=== PATIENT | female | born 1955 | race Two or more races ===

== ENCOUNTER 2024-02-08 05:55 | Inpatient (IN) | payer MEDICARE, OTHER, MEDICAID ==
[2024-02-04 14:28] LABS: Basophils # (auto) 0.1 10 ^3/uL (0-0.2); Basophils % (auto) 0.6 % (0.0-2.0); Eosinophils # (auto) 0.2 10 ^3/uL (0-0.8); Eosinophils % (auto) 2.5 % (0.0-7.0); Hematocrit 37.3 % (36.0-46.0); Hemoglobin 13.1 g/dL (12.2-16.2); Lymphocytes # (auto) 2.6 10 ^3/uL (0.4-5.4); Lymphocytes % (auto) 31.7 % (10.0-50.0); Mean Corpuscular Hemoglobin 32.6 pg (28.0-32.0); Monocytes # (auto) 0.6 10 ^3/uL (0-1.3); Monocytes % (auto) 7.5 % (0.0-12.0); Neutrophils # (auto) 4.8 10 ^3/uL (1.6-8.6); Neutrophils % (auto) 57.7 % (37.0-80.0); Platelet Count (auto) 194 10^3/uL (140-450); Red Blood Cells 4.01 10^6/uL (4.0-5.20); Red Cell Distribution Width 14.2 % (11.8-14.3); White Blood Cell 8.3 10^3/uL (4.4-10.8)
[2024-02-04 14:49] LABS: INR 1.04 (0.9-1.15); Partial Thromboplastin Time 28.2 SEC (24.5-34.5)
[2024-02-04 15:35] LABS: Alanine Aminotransferase 27 U/L (7-40); Albumin 4.7 g/dL (3.2-4.8); Alkaline Phosphatase 65 U/L (46-116); Anion Gap 6 (5-15); Aspartate Aminotransferase 24 U/L (13-40); BUN/Creatinine Ratio 21.8 (10.0-20.0); Blood Urea Nitrogen 17 mg/dL (9-23); Calcium 10.2 mg/dL (8.7-10.4); Carbon Dioxide 31 mmol/L (20-31); Chloride 106 mmol/L (98-107); Glucose 103 mg/dL (74-106); Potassium 4.3 mmol/L (3.5-5.1); Sodium 143 mmol/L (136-145)
[2024-02-04 15:36] LABS: Bilirubin, Total 0.6 mg/dL (0.2-1.0); Total Protein 7.4 g/dL (5.7-8.2)
[2024-02-04 15:47] LABS: Urine Bacteria FEW /hpf (None Seen); Urine Blood Negative /uL (Negative); Urine Clarity Clear (Clear); Urine Color Light-Yellow (Yellow); Urine Protein, UAD Negative (Negative); Urine Specific Gravity 1.009 (1.001-1.035); Urine Squamous Epithelial Cell FEW /hpf (<5); Urine Urobilinogen Normal (Negative); Urine WBC 4 /hpf (0 - 5); Urine pH 5.5 (5.0-9.0)
[2024-02-08] VITALS (7 sets, daily range): BP systolic 95–108; BP diastolic 60–70; PULSE 67–80; RESP 15–20; TEMP 96.6–98.5; O2SAT 89–97
[~2024-02-08] VITALS: Ht 160 cm; Wt 93.4 kg
[~2024-02-08 05:55] MED LIST: ACET-1080 PO; ASPI1TAB20 PO; ATOR40TA52 PO; CARV12.544 PO; CLOP75TA28 PO; DIPH50CA31 OR; IBUP-1456 PO; ICOS1CAP OR; MULT-1153 PO; NIFE1TAB31 PO; PANT40TA2 PO
[2024-02-08] MEDS: CIPROFLOXACIN 400MG/200ML 200 ML IV ONE (06:32)
[2024-02-08] MEDS: LIDOCAINE W/ EPINEPHRINE 1% 20ML VIAL ONE (06:33)
[2024-02-08] MEDS: TRANEXAMIC ACID 20 ML ONE (06:33)
[2024-02-08] MEDS: ceFAZolin 2 GM/D5W100ml 100 ML IV ONE (06:58)
[2024-02-08] MEDS: PROPOFOL 200 ML IV ONE (07:09)
[2024-02-08] MEDS ORDERED: ePHEDrine SULFATE 50 MG/ML AMP ONE (07:17)
[2024-02-08] MEDS ORDERED: MIDAZOLAM HCL 2MG/2ML 2ml VIAL (1mg/ml) ONE (07:17)
[2024-02-08] MEDS ORDERED: PHENYLEPHRINE HCL 10 MG/ML VL ONE (07:17)
[2024-02-08] MEDS ORDERED: LIDOCAINE 1% INJ PF 5ML AMP ONE (07:17)
[2024-02-08] MEDS ORDERED: ONDANSETRON HCL 4 MG/2 ML VIAL ONE (07:17)
[2024-02-08] MEDS ORDERED: HYDROmorphone HCL 2 MG/ML VL/or syr ONE (07:17)
[2024-02-08] MEDS ORDERED: ROCURONIUM 10MG/ML 10ML VIAL IV ONE (07:17)
[2024-02-08] MEDS ORDERED: fentaNYL CITRATE 5 ML ONE (07:19)
--- NOTE | 2024-02-08 07:20 | DVHHP2 ---
Admitting Diagnosis: Lumbar spinal stenosis History of Present Illness History Source: Patient, Family, RN Notes Exam Limitations: No limitations HPI Patient has a history of working for the [employer] for over 20 years, she has started developing back pain over the course of time. Patient is been involved in heavy lifting and twisting carrying large heavy items and awkward bags. Home Meds Reported Medications Acetaminophen (Tylenol 8 Hour Arthritis) 650 Mg Tab, 650 MG PO PRN, TAB 02/04/24 Multiple Vitamins W/ Minerals (Centrum Minis Women 50+) 1 Tab Tab, 1 TAB PO DAILY, TAB 02/04/24 Ibuprofen (Ibuprofen) 800 Mg Tab, 800 MG PO Q8HP, TAB 02/04/24 Aspirin (Aspir-81) 81 Mg Tab, 81 MG PO DAILY, TAB 02/04/24 Diphenhydramine Hcl (BANOPHEN) 50 Mg Cap, 50 MG OR PRN, CAP 02/04/24 Pantoprazole Sodium Sesquihydr (Protonix) 40 Mg Tab, 40 MG PO DAILY, #30 TAB 02/04/24 Clopidogrel Bisulfate (Plavix) 75 Mg Tab, 75 MG PO DAILY, TAB 02/04/24 Atorvastatin Calcium (ATORVASTATIN CALCIUM) 40 Mg Tab, 40 MG PO DAILY, TAB 02/04/24 Nifedipine (Nifedipine Er) 30 Mg Tab, 30 MG PO QAM, TAB 02/04/24 Epa Ethyl Ellyn (VASCEPA) 1 Gm Cap, 1 GM OR QID, CAP 02/04/24 Carvedilol (Carvedilol) 12.5 Mg Tab, 12.5 MG PO BID, TAB 02/04/24 Chief Complaint of Abdominal/F: Other (No complaints of any abdominal pain) Chest Pain Chief Complaint: Other (No complaints of any chest pain) Timing/Duration of Neck Pain: Other (Patient has had C-spine surgery in the past, she states her symptoms have resolved and she is doing well from. Surgery was 2006) Timing/Duration of Back Pain: > 1 Month, Other (Low back pain with pain extending to the right hip and leg. 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 However she has made an outstanding recovery with 5/5 strength all four extremities) Quality of Back Pain: Aching Back Pain Location: Lumbar spine Back Pain Radiation: Thigh area Timing/Duration of Headache: Other (No complaints) Timing/Duration of EENT: Other (Normal exam) Initial Comment None Head Injury Occurred: Other (No history of injury) Initial Comment None Chief Complaint for Wheezing/A: Other (No complaints) Neuro Symptoms/Deficit Chief C: Difficulty walking, Other (Patient has restricted the use of a walker at this time due to the extreme leg pain that she is having right greater than left) Cognition/Gait Alt Mental Stat: Alert, Oriented x 3 Past Medical History Cardiac: HTN, Other (Cardiac stents placed x7) Pulmonary: No pertinent Hx Central Nervous System: No pertinent Hx GI: No pertinent Hx Hemotology/Oncology: No pertinent Hx Hepatobiliary: No pertinent Hx Psychiatric: No pertinent Hx Musculoskeletal: Chronic low back pain, Other (Cervical spine surgery 2017) Rheumotologic: No pertinent Hx Infectious Disease: No peritnent Hx ENT: No pertinent Hx Renal/: No pertinent Hx Endocrine: No pertinent Hx Dermatology: No pertinent Hx Others Patient has screws in both feet she has had a hysterectomy in 1997, she has had her gallbladder removed Family History: No pertinent Hx Alocohol: None Drugs: None Lives with: With family Domestic Violence: Neg Review of Systems Constitutional: No symptom reported Ears, Nose, & Throat: No symptom reported Eyes: No symptom reported Pulmonary/Respiratory: No symptom reported Cardiovascular: No symptom reported Gastrointestinal: No symptom reported Genitourinary: No symptom reported Musculoskeletal: No symptom reported Skin: No symptom reported Psychiatric: No symptom reported Endocrine: No symptom reported Hemotologic/Lymphatic: No symptom reported H&P Exam General Appeara: Well developed, Well nourished Head Exam: Normal inspection Neck Exam: Normal inspection Nasal Exam: Normal inspection Mouth: Normal Inspection Pulmonary/Respiratory: Normal inspection Cardiovascular/Chest: Normal inspection Abdominal Exam: Other (No complaints) Rectal Exam: Deferred Back Exam: Normal inspection Pelvic Exam: Not done Male Genital Exam: Not done Shoulder Exam: Normal inspection Elbow/Forearm Exam: Normal inspection Wrist Exam: Normal inspection Hand Exam: Normal inspection Tendon/ Neuro: Normal sensation, Normal motor function [employer] Exam: Normal hearing, Normal speech, PERRL Motor/Sensory: Normal sensory function, Normal motor function Neuro/Mental St: Alert, Oriented Appearance: Appropriate appearance, Appropriate insight Eye contact/ Speech: Cooperative, Good eye contact, Normal speech Thoughts/Psych: Normal thought pattern Skin Exam: Normal inspection, Normal color Lymphatic: Normal inspection Labs/Xrays Labs Test 02/04/24 14:15 Range/Units White Blood Count 8.3 4.4-10.8 10^3/uL Red Blood Count 4.01 4.0-5.20 10^6/uL Hemoglobin 13.1 12.2-16.2 g/dL Hematocrit 37.3 36.0-46.0 % Mean Corpuscular Volume 93.0 80.0-100.0 fL Mean Corpuscular Hemoglobin 32.6 H 28.0-32.0 pg Mean Corpuscular Hemoglobin Concent 35.0 32.0-36.0 g/dL Red Cell Distribution Width 14.2 11.8-14.3 % Platelet Count 194 140-450 10^3/uL Mean Platelet Volume 8.4 6.9-10.8 fL Neutrophils (%) (Auto) 57.7 37.0-80.0 % Lymphocytes (%) (Auto) 31.7 10.0-50.0 % Monocytes (%) (Auto) 7.5 0.0-12.0 % Eosinophils (%) (Auto) 2.5 0.0-7.0 % Basophils (%) (Auto) 0.6 0.0-2.0 % Neutrophils # (Auto) 4.8 1.6-8.6 10 ^3/uL Lymphocytes # (Auto) 2.6 0.4-5.4 10 ^3/uL Monocytes # (Auto) 0.6 0-1.3 10 ^3/uL Eosinophils # (Auto) 0.2 0-0.8 10 ^3/uL Basophils # (Auto) 0.1 0-0.2 10 ^3/uL Nucleated Red Blood Cells 0.0 % Prothrombin Time 11.0 9.3-11.8 sec Prothrombin Time INR 1.04 0.9-1.15 Activated Partial Thromboplast Time 28.2 24.5-34.5 SEC Urine Color Light-yellow Yellow Urine Clarity Clear Clear Urine pH 5.5 5.0-9.0 Urine Specific [place] 1.009 1.001-1.035 Urine Protein Negative Negative Urine Ketones Negative Negative Urine Blood Negative Negative /uL Urine Nitrite Negative Negative Urine Bilirubin Negative Negative Urine Urobilinogen Normal Negative mg/dL Urine Leukocyte Esterase Negative Negative /uL Urine RBC 1 0 - 4 /hpf Urine WBC 4 0 - 5 /hpf Urine Squamous Epithelial Cells Few <5 /hpf Urine Bacteria Few H None Seen /hpf Urine Glucose Normal Normal mg/dL Sodium Level 143 136-145 mmol/L Potassium Level 4.3 3.5-5.1 mmol/L Chloride Level 106 98-107 mmol/L Carbon Dioxide Level 31 20-31 mmol/L Anion Gap 6 5-15 Blood Urea Nitrogen 17 9-23 mg/dL Creatinine 0.78 0.550-1.02 mg/dL Glomerular Filtration Rate Calc 82 >90 mL/min BUN/Creatinine Ratio 21.8 H 10.0-20.0 Serum Glucose 103 74-106 mg/dL Calcium Level 10.2 8.7-10.4 mg/dL Total Bilirubin 0.6 0.2-1.0 mg/dL Aspartate Amino Transferase (AST) 24 13-40 U/L Alanine Aminotransferase (ALT) 27 7-40 U/L Alkaline Phosphatase 65 46-116 U/L Total Protein 7.4 5.7-8.2 g/dL Albumin 4.7 3.2-4.8 g/dL Assessment/Plan Problem List: (1) Lumbar stenosis with neurogenic claudication Primary Diagnosis Lumbar stenosis Admitting Diagnosis: Lumbar stenosis Plan Patient arrives today for a elective spinal surgery with Dr. Speedy Simpson L3-5 posterior spinal decompression and fusion with peek cage and instrumentation The patient was informed of the risks and benefits of the procedure. These include but are not limited to complications of anesthesia, postoperative infection, incomplete relief of symptoms, recurrence of symptoms, damage to blood vessels, nerves and tendons, deep venous thrombosis, pulmonary embolism and possible need for repeat surgery in the future. The risks/benefits/alternatives of surgery including but not limited to pain, bleeding, infection, damage to surrounding soft tissue structures, need for reoperation or future surgery, persistent pain/disability/deformity, pseudoarthrotsis, bone graft collapse or extrusion of interbody device, instrumentation failure, need for instrumentation removal, dural tear, temporary or permanent nerve root damage, paralysis, stroke, deep vein thrombosis, pulmonary embolism, and any associated anesthetic risk (dry mouth, sore throat, dental damage, myocardial infarction, respiratory depression, blindness) were described to the patient in detail and the patient wishes to proceed. No guarantee of surgical outcome/improvement was implied. All of the questions were answered thoroughly and consents were obtained. We will obtain all the necessary preop tests in order for the patient to be cleared medically. Call with questions Mulugeta Garcia [facility] Orthopaedic Spine Surgery nurse practitioner For Dr Zion Simpson - for staff use only Patient was examined, chart reviewed, labs evaluated, and diagnostic studies and findings analyzed. Case was discussed with Dr. Speedy Simpson who formulated the plan of care. This medical document was created using an electronic medical record system with [employer] dictation system. Although this document has been carefully reviewed, there might still be some phonetic and typographical errors. These areas are purely typographical due to imperfections of the software programs, and do not reflect any compromise in the patient's medical care. Plan discussed with: Patient, Other (Preop nurse Marj DONALDSON) ONIEL GARCIA NP Feb 08, 2024 07:20
[2024-02-08] MEDS: VASOPRESSIN 20 UNIT/ML ONE (08:52)
[2024-02-08] MEDS ORDERED: SUGAMMADEX 200mg/2ml Vial (100MG/ML) IV ONE (10:21)
[2024-02-08] MEDS ORDERED: MORPHINE SULFATE INJ 2 MG/ml SYRG IV PRN (11:15)
[2024-02-08] MEDS ORDERED: ONDANSETRON HCL 4 MG/2 ML VIAL IV PRN (11:15)
[2024-02-08] MEDS ORDERED: ACETAMINOPHEN 325 MG TAB PO PRN (11:15)
[2024-02-08] MEDS ORDERED: NITROGLYCERIN 0.4 MG SL TAB SL PRN (11:15)
--- NOTE | 2024-02-08 11:28 | DVHOP2 ---
Operative Report - 2 Report Details Date: 02/08/24 Preop Diagnosis: lumbar spinal stenosis /spondylolisthesis causing incpacitating radiculopathy Postop Diagnosis: same as pre op Surgeon: Speedy Simpson MD [employer] Client Solutions Analyst: Valeria Garcia NP Anesthesiologist: Estefanía Hargrove MD Anesthesia: General Consent: The patient was informed of the risks and benefits of the procedure. These include but are not limited to complications of anesthesia, postoperative infection, incomplete relief of symptoms, recurrence of symptoms, damage to blood vessels, nerves and tendons, deep venous thrombosis, pulmonary embolism and possible need for repeat surgery in the future. Name of Procedure Performed see detailed note Procedure Details Procedure Details: Pre-op Diagnosis: Lumbar Degenerative Disk Disease and Lumbar Spinal Stenosis along with L4/5 and L3/4 spondylolisthesis/ degenerative scoliosis causing Incapacitating back pain, radiculopathy and progressive neurologic deficit Post-op Diagnosis: Lumbar Degenerative Disk Disease and Lumbar Spinal Stenosis with L4/5 and L3/4 spondylolisthesis/degenerative scoliosis causing Incapacitating back pain, radiculopathy and progressive neurologic deficit Procedure: Lumbar 5 laminectomy with Lumbar 5 foraminotomies and facetectomies to decompress central canal and Lumbar 5 nerve roots Lumbar 4 laminectomy with Lumbar 4 foraminotomies and facetectomies to decompress central canal and Lumbar 4 nerve roots Lumbar 3 laminectomy with Lumbar 3 foraminotomies and facetectomies to decompr ess central canal and Lumbar 4 nerve roots Lumbar 3 to 5 posterior spinal inter transverse fusion with bone graft Lumbar 3 to 5 posterior spinal instrumentation with pedicle screws Local Bone Autograft For Fusion Allograft Bone Substitute (Bacterin) to augment Fusion Use of Demineralized Bone Matrix to Augment Fusion Microscope For Microdissection Surgeon: Speedy Simpson MD Assist: ELIEZER Overton Anesthesia: General Fluids and EBL: See anesthesia note Patient was seen in the Pre Anesthesia Care Unit (PACU) and the operative site was initialed by me. All questions were answered to the patients satisfaction and chart reviewed. The patient was taken to the operative room where pre- operative antibiotics were given 30 minutes prior to incision. General anesthesia was induced and neuro-monitoring leads placed. Reich catheter was placed. The patient was turned prone onto the [facility] spinal table. While positioning, I made sure that the belly was free to allow proper expansion of the lungs. The hips were extended and all bony prominences padded. The shoulders were abducted 80 degree and the elbows flexed 100 degrees with no tension on the brachial plexus. I check the foot arterial pulses and they were palpable. The patient was prepped and draped and time out was taken at this time per usual protocol. At this time, the C-arm fluoroscope was brought in and was used to janelle the incision borders proximally and distally. Using a Number 10 Blade, an incision was made extending it proximally and distally per C arm janelle from the posterior spinous process of lumbar 4,5 down to the lumbo-dorsal fascia. All bleeding was controlled with electrocautery. Self-retaining retractors were placed. Electrocautery was then used to take down the lumbo- dorsal fascia, to free the muscle off the bone bilaterally. A Adrian retractor was placed over the posterior spinous process proximally and a lateral C-arm fluoroscope image was taken to insure we were at the correct level. Next, using bovie electro cautery, The deep fascia laterally to the facet joints was removed to expose the transverse processes of lumbar 3, 4 and 5 while taking care to avoid injuring the facet capsule at the proximal end of the incision. Next, the microscope was bought in for visualization and using a Luxell rongeur, the posterior spinous process of lumbar 3 and 4 and 5 bone were removed and the bone was saved for use as local autograft. I used alternating Kerison 2 mm and 3 mm rongeurs to perform central laminectomies lumbar 5 and 4 and 3 to decompress the central canal. Next using alternating Kerison 2mm and 3 mm rongeurs, the superior articular facets of lumbar 3, 4 and 5 were removed bilaterally to decompress the lateral recess (facetectomies) and then extended proximally to decompress the foramen bilaterally (foraminotomies). I used a ball tipped nerve probed to insure that the respective nerve roots were able to be mobilized 5mm in each direction were unimpeded in the lateral recess and foramen. Next I carefully inspected the dura to make sure no durotomy was visible and it was not. I covered the exposed dura with gelfoam soaked in thrombin and the microscope was wheeled away from the operative filed. The C-arm fluoroscope was brought in and perfect AP views of the lumbar 4 and 5 pedicles were obtained. I placed bilateral pedicle screws at these levels by: using a Lenke awl to make a military pilot hole, then a ball tip robe to make sure there was no pedicle breach, then a tap to prepare the track and a 6.5 mm diameter 45 mm length pedicle screw was placed bilaterally. This step to place bilateral pedicle screws was repeated up to the lumbar 3, 4 and 5 level. Next, the c-arm fluoroscope took an AP and lateral x-ray to ensure proper placement of the pedicle screws. Next, the neuro-stimulation probe was placed over the tip of each screw and each screw stimulated only after a current greater than 10 mA was delivered to the screw. Next , I took a Midas Nathanael Drill to decorticate the transverse process which were exposed and local bone graft, Bacterin allograft bone substitute and Demineralized bone matrix were placed along the inter transverse process intervals bilaterally (the fusion bed). Next a curved marsha sized to fit the pedicle screw interval was placed and secured to each pedicle screw using set screws, The set screws were tightened using a torque screwdriver (set to 10 N*M torque) to secure the marsha to the pedicle screws bilaterally. Final AP and lateral C arm fluoroscopic films were taken at this time. Next a 10 [place] diameter Hemovac drain was laced deep to the lumbo- dorsal fascia. The lumbo-dorsal fascia was closed with interrupted 0-Vicry sutures. The subcutaneous tissue was closed with interrupted 2-0 Vicryl sutures. The skin was closed with running 2-0 nylon suture. Sterile dressings were place. The pt. was turned supine onto the stretcher, extubated and taken to the recovery room in stable condition. At the end of the case a TLSO brace was placed as well as an external bone stimulator. Condition Stable Disposition Still a Patient SPEEDY SIMPSON MD Feb 08, 2024 11:28
[2024-02-08] MEDS: ONDANSETRON HCL 4 MG/2 ML VIAL IV ONE (11:30)
[2024-02-08] MEDS ORDERED: HYDROmorphone HCL 2 MG/ML VL/or syr IV PRN (11:30)
--- NOTE | 2024-02-08 11:55 | DVH ---
C-ARM FLUOROSCOPY: PROCEDURE: l3-l5 spinal decompression FLUOROSCOPY TIME: 44.2 sec
--- NOTE | 2024-02-08 11:55 | DVH ---
C-ARM FLUOROSCOPY: PROCEDURE: l3-l5 spinal decompression FLUOROSCOPY TIME: 44.2 sec
[2024-02-08] MEDS: ceFAZolin 1GM/50ML 50 ML IV SCH (15:58)
[2024-02-08] MEDS: CYCLOBENZAPRINE HCL 10 MG TAB PO SCH (15:58)
[2024-02-08] MEDS: D5W/SOD CHLO 0.9% 1,000 ML IV SCH (15:58)
[2024-02-08] MEDS: DOCUSATE SOD 100 MG CAP PO SCH (21:26)
[2024-02-08] MEDS: HYDROcodone-ACET 10/325MG TAB PO PRN (21:27)
[2024-02-09] VITALS (9 sets, daily range): BP systolic 98–130; BP diastolic 53–68; PULSE 69–78; RESP 16–20; TEMP 97.3–98.3; O2SAT 95–98
[2024-02-09] MEDS: D5W/SOD CHLO 0.9% 1,000 ML IV SCH (10:00)
--- NOTE | 2024-02-09 10:02 | DVHINCON2 ---
Date Seen: Feb 09, [address] Simpson Family History: Patient reports no known family medical history. Allergies: Coded Allergies: Sulfa Antibiotics (Unverified Allergy, Mild, rash, 02/04/24) Home Meds Reported Medications Acetaminophen (Tylenol 8 Hour Arthritis) 650 Mg Tab, 650 MG PO PRN, TAB 02/04/24 Multiple Vitamins W/ Minerals (Centrum Minis Women 50+) 1 Tab Tab, 1 TAB PO DAILY, TAB 02/04/24 Ibuprofen (Ibuprofen) 800 Mg Tab, 800 MG PO Q8HP, TAB 02/04/24 Aspirin (Aspir-81) 81 Mg Tab, 81 MG PO DAILY, TAB 02/04/24 Diphenhydramine Hcl (BANOPHEN) 50 Mg Cap, 50 MG OR PRN, CAP 02/04/24 Pantoprazole Sodium Sesquihydr (Protonix) 40 Mg Tab, 40 MG PO DAILY, #30 TAB 02/04/24 Clopidogrel Bisulfate (Plavix) 75 Mg Tab, 75 MG PO DAILY, TAB 02/04/24 Atorvastatin Calcium (ATORVASTATIN CALCIUM) 40 Mg Tab, 40 MG PO DAILY, TAB 02/04/24 Nifedipine (Nifedipine Er) 30 Mg Tab, 30 MG PO QAM, TAB 02/04/24 Epa Ethyl Ellyn (VASCEPA) 1 Gm Cap, 1 GM OR QID, CAP 02/04/24 Carvedilol (Carvedilol) 12.5 Mg Tab, 12.5 MG PO BID, TAB 02/04/24 Current Medications Current Medications Medications (Trade) Dose Ordered Sig/Marilyn Route PRN Reason Start Time Stop Time Status Last Admin Dextrose/Sodium Chloride 1,000 ml @ 100 mls/hr Q10H IV 02/08/24 11:15 02/09/24 05:28 Ondansetron HCl (Zofran) 4 mg Q4HP PRN IV NAUSEA / VOMITING 02/08/24 11:15 Acetaminophen (Tylenol Tablet) 650 mg Q6HP PRN PO MILD PAIN (1-3 PAIN SCALE) 02/08/24 11:15 Acetaminophen/ Hydrocodone Bitart ([place] 10/325MG Tab) 1 tab Q6HP PRN PO MODERATE PAIN (4-6 PAIN SCALE) 02/08/24 11:15 02/09/24 08:34 Morphine Sulfate 1 mg Q4HP PRN IV SEVERE PAIN (7-10 PAIN SCALE) 02/08/24 11:15 Cyclobenzaprine HCl (Flexeril Tablet) 10 mg TID PO 02/08/24 14:00 02/09/24 05:28 Docusate Sodium (Colace Capsule) 100 mg BID PO 02/08/24 22:00 02/09/24 08:34 Cefazolin Sodium 50 ml @ 100 mls/hr Q8HR IV 02/08/24 14:00 02/10/24 06:29 02/09/24 05:28 Nitroglycerin (Ntrostat Sublingual) 0.4 mg Q5MINP PRN SL FOR CHEST PAIN 02/08/24 11:15 Morphine Sulfate 2 mg Q30M PRN IV FOR CHEST PAIN 02/08/24 11:15 Hydromorphone HCl (Dilaudid Injection) 0.25 mg Q10M PRN IV MODERATE PAIN (4-6 PAIN SCALE) 02/08/24 11:30 02/08/24 12:01 DC Vital Signs Vital Signs Date Time Temp Pulse Resp B/P (MAP) Pulse Ox O2 Delivery O2 Flow Rate FiO2 02/09/24 08:49 97.3 76 16 112/57 (75) 98 97.3 02/09/24 08:17 Nasal Cannula* 2 28 Labs/Diagnostic Data Labs Test 02/04/24 14:15 Range/Units White Blood Count 8.3 4.4-10.8 10^3/uL Red Blood Count 4.01 4.0-5.20 10^6/uL Hemoglobin 13.1 12.2-16.2 g/dL Hematocrit 37.3 36.0-46.0 % Mean Corpuscular Volume 93.0 80.0-100.0 fL Mean Corpuscular Hemoglobin 32.6 H 28.0-32.0 pg Mean Corpuscular Hemoglobin Concent 35.0 32.0-36.0 g/dL Red Cell Distribution Width 14.2 11.8-14.3 % Platelet Count 194 140-450 10^3/uL Mean Platelet Volume 8.4 6.9-10.8 fL Neutrophils (%) (Auto) 57.7 37.0-80.0 % Lymphocytes (%) (Auto) 31.7 10.0-50.0 % Monocytes (%) (Auto) 7.5 0.0-12.0 % Eosinophils (%) (Auto) 2.5 0.0-7.0 % Basophils (%) (Auto) 0.6 0.0-2.0 % Neutrophils # (Auto) 4.8 1.6-8.6 10 ^3/uL Lymphocytes # (Auto) 2.6 0.4-5.4 10 ^3/uL Monocytes # (Auto) 0.6 0-1.3 10 ^3/uL Eosinophils # (Auto) 0.2 0-0.8 10 ^3/uL Basophils # (Auto) 0.1 0-0.2 10 ^3/uL Nucleated Red Blood Cells 0.0 % Prothrombin Time 11.0 9.3-11.8 sec Prothrombin Time INR 1.04 0.9-1.15 Activated Partial Thromboplast Time 28.2 24.5-34.5 SEC Urine Color Light-yellow Yellow Urine Clarity Clear Clear Urine pH 5.5 5.0-9.0 Urine Specific [place] 1.009 1.001-1.035 Urine Protein Negative Negative Urine Ketones Negative Negative Urine Blood Negative Negative /uL Urine Nitrite Negative Negative Urine Bilirubin Negative Negative Urine Urobilinogen Normal Negative mg/dL Urine Leukocyte Esterase Negative Negative /uL Urine RBC 1 0 - 4 /hpf Urine WBC 4 0 - 5 /hpf Urine Squamous Epithelial Cells Few <5 /hpf Urine Bacteria Few H None Seen /hpf Urine Glucose Normal Normal mg/dL Sodium Level 143 136-145 mmol/L Potassium Level 4.3 3.5-5.1 mmol/L Chloride Level 106 98-107 mmol/L Carbon Dioxide Level 31 20-31 mmol/L Anion Gap 6 5-15 Blood Urea Nitrogen 17 9-23 mg/dL Creatinine 0.78 0.550-1.02 mg/dL Glomerular Filtration Rate Calc 82 >90 mL/min BUN/Creatinine Ratio 21.8 H 10.0-20.0 Serum Glucose 103 74-106 mg/dL Calcium Level 10.2 8.7-10.4 mg/dL Total Bilirubin 0.6 0.2-1.0 mg/dL Aspartate Amino Transferase (AST) 24 13-40 U/L Alanine Aminotransferase (ALT) 27 7-40 U/L Alkaline Phosphatase 65 46-116 U/L Total Protein 7.4 5.7-8.2 g/dL Albumin 4.7 3.2-4.8 g/dL Assessment see dictated note Plan discussed with: Patient Date of Service: Feb 09, 2024 Billing Provider: STANISLAV GRAY MD Common Visit Codes: [id number] INP/OBS CARE (HIGH) STANISLAV GRAY MD Feb 09, 2024 10:02
[2024-02-09] MEDS: PANTOPRAZOLE 40 MG TAB PO ONE (10:15)
--- NOTE | 2024-02-09 10:16 | DVHINCON2 ---
INTERNAL MEDICINE CONSULTATION HISTORY OF PRESENT ILLNESS: The patient is a 68-year-old lady who underwent back surgery for DJD of the spine. The patient at this time denies any significant pain. No chest pain or shortness of breath. No nausea or vomiting. REVIEW OF SYSTEMS: Review of rest of systems otherwise currently negative. PAST MEDICAL HISTORY: Significant for coronary artery disease, status post 7 stents. She also has history of hypertension, hyperlipidemia, and GERD. MEDICATIONS: Include aspirin, Plavix, Coreg, nifedipine, Protonix. ALLERGIES: SULFA. SOCIAL HISTORY: Denies smoking or alcohol. Lives at home with her . FAMILY HISTORY: Negative. PHYSICAL EXAMINATION: GENERAL: The patient is awake and alert. VITAL SIGNS: Temperature of 97.3, pulse 76 per minute, blood pressure 112/57. SHEENT: Unremarkable. There is no JVD and no pedal edema. LUNGS: Equal bilaterally. No added sounds. CARDIOVASCULAR: S1 and S2 is regular without murmurs. ABDOMEN: Soft. There is no organomegaly. NEUROLOGICAL: The patient is nonfocal. MUSCULOSKELETAL: There are JUANJO drains in place at the lumbar spine. ASSESSMENT AND PLAN: * Coronary artery disease status post stents. The patient will be held off the blood thinners since she is recent postop. * Hypertension. Her blood pressure will be monitored. * Hyperlipidemia. She will resume the atorvastatin. * Obesity. * Gastroesophageal reflux disease for which she will continue Protonix. 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 for which she will be placed on pain medications and receive physical therapy. MD YOAV Rene/ANTONI TID: [id number] RECEIPT: [id number]
[2024-02-09] MEDS: MORPHINE SULFATE INJ 2 MG/ml SYRG IV PRN (11:24)
[2024-02-09] MEDS: ATORVASTATIN 20 MG TAB PO SCH (21:06)
[2024-02-10] VITALS (8 sets, daily range): BP systolic 121–141; BP diastolic 60–73; PULSE 68–113; RESP 16–24; TEMP 98–99.8; O2SAT 93–99
[2024-02-10] MEDS: PANTOPRAZOLE 40 MG TAB PO SCH (05:42)
[2024-02-10 06:51] LABS: Basophils # (auto) 0 10 ^3/uL (0-0.2); Basophils % (auto) 0.3 % (0.0-2.0); Eosinophils # (auto) 0.1 10 ^3/uL (0-0.8); Eosinophils % (auto) 0.5 % (0.0-7.0); Hematocrit 27.1 % (36.0-46.0); Hemoglobin 9.3 g/dL (12.2-16.2); Lymphocytes # (auto) 2.2 10 ^3/uL (0.4-5.4); Lymphocytes % (auto) 19.6 % (10.0-50.0); Mean Corpuscular Hemoglobin 32.3 pg (28.0-32.0); Mean Corpuscular Hgb Conc. 34.5 g/dL (32.0-36.0); Mean Corpuscular Volume 93.7 fL (80.0-100.0); Monocytes # (auto) 0.9 10 ^3/uL (0-1.3); Monocytes % (auto) 8.1 % (0.0-12.0); Neutrophils % (auto) 71.5 % (37.0-80.0); Platelet Count (auto) 131 10^3/uL (140-450); Red Blood Cells 2.89 10^6/uL (4.0-5.20); Red Cell Distribution Width 14.6 % (11.8-14.3); White Blood Cell 11.2 10^3/uL (4.4-10.8)
[2024-02-10 07:10] LABS: Alanine Aminotransferase 29 U/L (7-40); Albumin 3.6 g/dL (3.2-4.8); Anion Gap 7 (5-15); BUN/Creatinine Ratio 26.9 (10.0-20.0); Blood Urea Nitrogen 14 mg/dL (9-23); Calcium 8.9 mg/dL (8.7-10.4); Carbon Dioxide 30 mmol/L (20-31); Glucose 104 mg/dL (74-106)
[2024-02-10 07:11] LABS: Bilirubin, Total 0.4 mg/dL (0.2-1.0)
[2024-02-10 07:12] LABS: Alkaline Phosphatase 44 U/L (46-116); Aspartate Aminotransferase 40 U/L (13-40); Chloride 109 mmol/L (98-107); Potassium 3.4 mmol/L (3.5-5.1); Sodium 146 mmol/L (136-145); Total Protein 5.4 g/dL (5.7-8.2)
--- NOTE | 2024-02-10 10:56 | DVHPN2 ---
Progress Note Date Seen: Feb 10, 2024 Medical Necessity Reason Pt with a Central, PICC or Fol: No Subjective Patient reports: No new complaints Review of Systems: HEENT:Normal, CVS:Normal, RESPIRATORY:Normal, GI:Normal, :Normal, MSK:Normal, NEURO:Normal Objective vital signs Vital Sign Date Time Temp Pulse Resp B/P (MAP) Pulse Ox O2 Delivery O2 Flow Rate FiO2 02/10/24 09:00 98.1 78 19 135/69 (91) 97 98.1 02/10/24 08:00 Nasal Cannula* 2 28 Total Intake and Output 02/09/24 02/09/24 02/10/24 15:00 23:00 07:00 Intake Total 1975 ml 1200 ml Output Total 1550 ml 2030 ml Balance 425 ml -830 ml medications Current Medications Medications Dose Ordered Sig/Marilyn Route Start Time Stop Time Status Last Admin Dose Admin Ondansetron HCl 4 mg Q4HP PRN IV 02/08/24 11:15 Acetaminophen 650 mg Q6HP PRN PO 02/08/24 11:15 Acetaminophen/ Hydrocodone Bitart 1 tab Q6HP PRN PO 02/08/24 11:15 02/10/24 08:41 1 TAB Morphine Sulfate 1 mg Q4HP PRN IV 02/08/24 11:15 02/09/24 11:24 1 MG Cyclobenzaprine HCl 10 mg TID PO 02/08/24 14:00 02/10/24 05:41 10 MG Docusate Sodium 100 mg BID PO 02/08/24 22:00 02/10/24 08:40 100 MG Nitroglycerin 0.4 mg Q5MINP PRN SL 02/08/24 11:15 Morphine Sulfate 2 mg Q30M PRN IV 02/08/24 11:15 Dextrose/Sodium Chloride 1,000 ml @ 75 mls/hr [id number] IV 02/09/24 10:00 02/09/24 23:30 75 MLS/HR Atorvastatin Calcium 40 mg HS PO 02/09/24 22:00 02/09/24 21:06 40 MG Pantoprazole Sodium 40 mg DAILY@0600 PO 02/10/24 06:00 02/10/24 05:42 40 MG Examination: GENERAL:Normal, HEENT:Normal, NECK:Normal, LUNGS:Normal, CVS:Normal, ABDOMEN:Normal, MSK:Normal, MSK:Abnormal (DRAINS+), SKIN:Normal, NEURO:Normal, :Normal laboratory and microbiology Laboratory Tests 02/10/24 06:16 Test 02/10/24 06:16 Range/Units Serum Glucose 104 74-106 mg/dL Problem List/Assessment/Plan Problem List/Assessment/Plan * Coronary artery disease status post stents. The patient will be held off the blood thinners since she is recent postop. * Hypertension. Her blood pressure will be monitored. * Hyperlipidemia. She will resume the atorvastatin. * Obesity. * Gastroesophageal reflux disease for which she will continue Protonix. 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 for which she will be placed on pain medications and receive physical therapy advance care planning- full code- time spent 19 mins Plan discussed with: Patient My Orders My Orders Orders - STANISLAV GRAY MD Procedure Category Date Status Time 02/23 Ns PHA 02/10/24 Verified 11:00 Potassium Er Tablet PHA 02/10/24 Verified (Klor-Con Tablet) 11:00 Discontinue Tele AMAYA 02/10/24 Verified 10:52 Transfer Orders XFER 02/10/24 Verified 10:52 Basic Metabolic Panel LAB 02/11/24 Verified 06:00 Complete Blood Count LAB 02/11/24 Verified 06:00 Date of Service: Feb 10, 2024 Billing Provider: STANISLAV GRAY MD Common Visit Codes: [id number] INP/OBS CARE(HIGH) Secondary Visit Codes: [id number] CARE PLAN 30 MINUTES STANISLAV GRAY MD Feb 10, 2024 10:56
[2024-02-10] MEDS: POTASSIUM CHL 20 Meq TABLET PO ONE (12:29)
[2024-02-10] MEDS: SOD CHL 0.45% 1,000 ML IV SCH (12:29)
--- NOTE | 2024-02-10 13:11 | DVH ---
CHEST RADIOGRAPH Indication: cad Technique: Single frontal view of the chest was obtained Comparison: None FINDINGS: Lines and Tubes: None Lungs: No focal consolidation. Pleura: No effusion. No pneumothorax. Cardiomediastinal contours: Unremarkable Bones: No acute osseous abnormality. IMPRESSION: No acute cardiopulmonary disease.
[2024-02-11] VITALS (7 sets, daily range): BP systolic 106–142; BP diastolic 50–76; PULSE 80–118; RESP 16–20; TEMP 97.5–100.1; O2SAT 93–97
[2024-02-11 06:57] LABS: Basophils # (auto) 0 10 ^3/uL (0-0.2); Basophils % (auto) 0.2 % (0.0-2.0); Eosinophils # (auto) 0.2 10 ^3/uL (0-0.8); Eosinophils % (auto) 1.7 % (0.0-7.0); Hematocrit 27.5 % (36.0-46.0); Hemoglobin 9.6 g/dL (12.2-16.2); Lymphocytes # (auto) 2.4 10 ^3/uL (0.4-5.4); Lymphocytes % (auto) 19.7 % (10.0-50.0); Mean Corpuscular Hemoglobin 32.7 pg (28.0-32.0); Mean Corpuscular Hgb Conc. 35.1 g/dL (32.0-36.0); Mean Corpuscular Volume 93.4 fL (80.0-100.0); Monocytes # (auto) 1.1 10 ^3/uL (0-1.3); Monocytes % (auto) 8.8 % (0.0-12.0); Neutrophils # (auto) 8.6 10 ^3/uL (1.6-8.6); Neutrophils % (auto) 69.6 % (37.0-80.0); Platelet Count (auto) 142 10^3/uL (140-450); Red Blood Cells 2.94 10^6/uL (4.0-5.20); Red Cell Distribution Width 14.6 % (11.8-14.3); White Blood Cell 12.4 10^3/uL (4.4-10.8)
[2024-02-11 06:58] LABS: Anion Gap 5 (5-15); Carbon Dioxide 31 mmol/L (20-31); Chloride 105 mmol/L (98-107); Sodium 141 mmol/L (136-145)
[2024-02-11 06:59] LABS: Calcium 9.2 mg/dL (8.7-10.4)
[2024-02-11 07:04] LABS: BUN/Creatinine Ratio 23.9 (10.0-20.0); Blood Urea Nitrogen 11 mg/dL (9-23); Glucose 104 mg/dL (74-106)
[2024-02-11 07:12] LABS: Potassium 3.4 mmol/L (3.5-5.1)
[2024-02-12 01:00] VITALS: BP 143/68; PULSE 110; RESP 20; TEMP 99.4; O2SAT 95
[2024-02-12 05:00] VITALS: BP 134/59; PULSE 84; RESP 20; TEMP 98.9; O2SAT 96
[2024-02-12 08:51] VITALS: BP 104/57; PULSE 90; RESP 16; TEMP 97.4; O2SAT 98
--- NOTE | 2024-02-12 11:05 | DVHPN2 ---
Subjective was not able to urinate after her mclaughlin was dc and needed mclaughlin reinserted for urine retention denies any cough or dysuria/no diarrhea/no rash/no urti symptoms.//low grade temp 99-100 Changes from previous H/P or p: No Changes Objective Vitals Vital Signs Date Time Temp Pulse Resp B/P (MAP) Pulse Ox O2 Delivery O2 Flow Rate FiO2 02/12/24 08:51 97.4 90 16 104/57 (73) 98 97.4 02/11/24 20:00 Room Air* 0 21 Intake/Output Intake and Output 02/12/24 07:00 Intake Total 2160 ml Output Total 2575 ml Balance -415 ml Intake Oral 2160 ml Output Urine Total 2575 ml General Appearance: Alert, Oriented X3, Cooperative, No acute distress Cardiovascular: Regular rate, Normal S1, Normal S2, No murmurs Abdomen: Normal bowel sounds, Soft, No tenderness, No hepatospenomegaly Neuro: Normal gait, Normal speech, Strength at 5/5 X4 ext, Normal tone, S ensation intact Psych/Mental Status: Mental status NL Medications Current Medications Medications Dose Ordered Sig/Marilyn Route Start Time Stop Time Status Last Admin Dose Admin Ondansetron HCl 4 mg Q4HP PRN IV 02/08/24 11:15 Acetaminophen 650 mg Q6HP PRN PO 02/08/24 11:15 Acetaminophen/ Hydrocodone Bitart 1 tab Q6HP PRN PO 02/08/24 11:15 02/12/24 05:14 1 TAB Morphine Sulfate 1 mg Q4HP PRN IV 02/08/24 11:15 02/11/24 21:14 1 MG Cyclobenzaprine HCl 10 mg TID PO 02/08/24 14:00 02/12/24 05:20 10 MG Docusate Sodium 100 mg BID PO 02/08/24 22:00 02/11/24 21:13 100 MG Nitroglycerin 0.4 mg Q5MINP PRN SL 02/08/24 11:15 Morphine Sulfate 2 mg Q30M PRN IV 02/08/24 11:15 Atorvastatin Calcium 40 mg HS PO 02/09/24 22:00 02/11/24 21:13 40 MG Pantoprazole Sodium 40 mg DAILY@0600 PO 02/10/24 06:00 02/12/24 05:21 40 MG Sodium Chloride 1,000 ml @ 75 mls/hr [id number] IV 02/10/24 11:00 02/11/24 15:04 75 MLS/HR Ceftriaxone Sodium 50 ml @ 100 mls/hr DAILY@09 IV 02/13/24 09:00 UNV Docusate Sodium 100 mg BIDPRN PRN PO 02/12/24 10:30 UNV Lactulose 30 ml BID PO 02/12/24 22:00 UNV Laboratory Results Laboratory Tests 02/11/24 06:09 Urinalysis Test 02/04/24 14:15 Urine Color Light-yellow (Yellow) Urine Clarity Clear (Clear) Urine pH 5.5 (5.0-9.0) Urine Specific [place] 1.009 (1.001-1.035) Urine Protein Negative (Negative) Urine Ketones Negative (Negative) Urine Blood Negative /uL (Negative) Urine Nitrite Negative (Negative) Urine Bilirubin Negative (Negative) Urine Urobilinogen Normal mg/dL (Negative) Urine Leukocyte Esterase Negative /uL (Negative) Urine RBC 1 /hpf (0 - 4) Urine WBC 4 /hpf (0 - 5) Urine Squamous Epithelial Cells Few /hpf (<5) Urine Bacteria Few /hpf (None Seen) H Urine Glucose Normal mg/dL (Normal) Labs and/or images reviewed: Labs reviewed by me, Image(s) reviewed by me Assessment/Plan Assessment/Plan s/p lumbar spine surgery post op urine retention- consult neuro fiirst to reevaluate before adding meds or dc mclaughlin and trial of spontaneous void ambulated with pt asking [facility] rehab- per social contact worker notes states home with pt constipation treat h/o htn normotensive now/monitor closely Plan discussed with: Patient, Daughter My Orders Orders - TUAN FERNANDEZ MD Procedure Category Date Status Time Urine Bacterial MICH 02/12/24 Logged Culture 10:30 Ceftriaxone 1gm/50ml PHA 02/12/24 Logged D5w (Rocephin) 10:30 Ceftriaxone 1gm/50ml PHA 02/13/24 Logged D5w (Rocephin) 09:00 Docusate Sodium PHA 02/12/24 Logged Capsule (Colace 10:30 Lactulose Oral PHA 02/12/24 Logged 22:00 * Orthopedic Consult CONS 02/12/24 Transmitted 10:55 Date of Service: Feb 12, 2024 Billing Provider: TUAN FERNANDEZ MD Common Visit Codes: [id number] INP/OBS CARE(HIGH) TUAN FERNANDEZ MD Feb 12, 2024 11:05
[2024-02-12 11:57] LABS: Basophils # (auto) 0 10 ^3/uL (0-0.2); Basophils % (auto) 0.2 % (0.0-2.0); Eosinophils # (auto) 0.3 10 ^3/uL (0-0.8); Eosinophils % (auto) 3.3 % (0.0-7.0); Hematocrit 28.2 % (36.0-46.0); Hemoglobin 9.8 g/dL (12.2-16.2); Lymphocytes # (auto) 2.2 10 ^3/uL (0.4-5.4); Lymphocytes % (auto) 23.8 % (10.0-50.0); Mean Corpuscular Hemoglobin 32.7 pg (28.0-32.0); Mean Corpuscular Hgb Conc. 34.8 g/dL (32.0-36.0); Mean Corpuscular Volume 93.9 fL (80.0-100.0); Monocytes # (auto) 0.9 10 ^3/uL (0-1.3); Monocytes % (auto) 9.8 % (0.0-12.0); Neutrophils # (auto) 5.8 10 ^3/uL (1.6-8.6); Neutrophils % (auto) 62.9 % (37.0-80.0); Platelet Count (auto) 152 10^3/uL (140-450); Red Blood Cells 3.01 10^6/uL (4.0-5.20); Red Cell Distribution Width 14.5 % (11.8-14.3); White Blood Cell 9.3 10^3/uL (4.4-10.8)
[2024-02-12] MEDS: LACTULOSE 20Gm/30ML SOLN PO ONE (12:49)
[2024-02-12] MEDS: cefTRIAXone 1GM/50ML D5W 50 ML IV ONE (12:50)
[2024-02-12 13:00] VITALS: BP 144/80; PULSE 70; RESP 16; TEMP 97.7; O2SAT 98
[2024-02-12 14:17] LABS: Urine Bacteria None Seen /hpf (None Seen); Urine Squamous Epithelial Cell None Seen /hpf (<5); Urine WBC None Seen /hpf (0 - 5)
[2024-02-12] MEDS: SENNA 8.6 MG TAB PO ONE (16:43)
[2024-02-12 16:59] VITALS: BP 126/69; PULSE 100; RESP 16; TEMP 97.8; O2SAT 98
[2024-02-12] MEDS: DOCUSATE SOD 100 MG CAP PO PRN (21:15)
[2024-02-12] MEDS: LACTULOSE 20Gm/30ML SOLN PO SCH (21:16)
[2024-02-13] VITALS (8 sets, daily range): BP systolic 97–123; BP diastolic 57–72; PULSE 73–104; RESP 16–19; TEMP 97.6–99; O2SAT 92–97
[2024-02-13] MEDS: cefTRIAXone 1GM/50ML D5W 50 ML IV SCH (08:16)
--- NOTE | 2024-02-13 18:03 | DVHPN2 ---
Subjective denies any complaints no bm yet asking if can try to dc mclaughlin again in am awaiting on neurosurgeon Changes from previous H/P or p: No Changes Objective Vitals Vital Signs Date Time Temp Pulse Resp B/P (MAP) Pulse Ox O2 Delivery O2 Flow Rate FiO2 02/13/24 16:41 98.0 104 16 102/71 (81) 92 98.0 02/13/24 08:16 Nasal Cannula* 2 28 Intake/Output Intake and Output 02/13/24 07:00 Intake Total 1930 ml Output Total 1650 ml Balance 280 ml Intake Oral 930 ml IV Total 1000 ml Output Urine Total 1650 ml General Appearance: Alert, Oriented X3, Cooperative, No acute distress Cardiovascular: Regular rate, Normal S1, Normal S2, No murmurs Abdomen: Normal bowel sounds, Soft, No tenderness, No hepatospenomegaly Neuro: Normal gait, Normal speech, Strength at 5/5 X4 ext, Normal tone, S ensation intact Psych/Mental Status: Mental status NL Medications Current Medications Medications Dose Ordered Sig/Marilyn Route Start Time Stop Time Status Last Admin Dose Admin Acetaminophen 650 mg Q6HP PRN PO 02/08/24 11:15 Acetaminophen/ Hydrocodone Bitart 1 tab Q6HP PRN PO 02/08/24 11:15 02/13/24 13:36 1 TAB Cyclobenzaprine HCl 10 mg TID PO 02/08/24 14:00 02/13/24 13:36 10 MG Docusate Sodium 100 mg BID PO 02/08/24 22:00 02/13/24 10:17 100 MG Atorvastatin Calcium 40 mg HS PO 02/09/24 22:00 02/12/24 21:12 40 MG Pantoprazole Sodium 40 mg DAILY@0600 PO 02/10/24 06:00 02/13/24 05:12 40 MG Ceftriaxone Sodium 50 ml @ 100 mls/hr DAILY@09 IV 02/13/24 09:00 02/13/24 08:16 100 MLS/HR Docusate Sodium 100 mg BIDPRN PRN PO 02/12/24 10:30 02/12/24 21:15 100 MG Lactulose 30 ml BID PO 02/12/24 22:00 02/13/24 10:17 30 ML Laboratory Results Laboratory Tests 02/11/24 06:09 02/12/24 11:40 Urinalysis Test 02/04/24 14:15 02/12/24 13:30 Urine Color Light-yellow (Yellow) Urine Clarity Clear (Clear) Urine pH 5.5 (5.0-9.0) Urine Specific [place] 1.009 (1.001-1.035) Urine Protein Negative (Negative) Urine Ketones Negative (Negative) Urine Blood Negative /uL (Negative) Urine Nitrite Negative (Negative) Urine Bilirubin Negative (Negative) Urine Urobilinogen Normal mg/dL (Negative) Urine Leukocyte Esterase Negative /uL (Negative) Urine Glucose Normal mg/dL (Normal) Urine RBC 1 /hpf (0 - 4) Urine WBC None seen /hpf (0 - 5) Urine Squamous Epithelial Cells None seen /hpf (<5) Urine Bacteria None seen /hpf (None Seen) Microbiology Microbiology Date/Time Source Procedure Growth Status 02/12/24 13:30 Urine - [place] Urine Culture - Preliminary Resulted Labs and/or images reviewed: Image(s) reviewed by me Assessment/Plan Assessment/Plan s/p lumbar spine surgery post op urine retention- consult neuro fiirst to reevaluate before adding meds or dc mclaughlin and trial of spontaneous void ambulated with pt asking [facility] rehab- per social media marketing analyst notes states home with pt constipation treat h/o htn normotensive now/monitor closely Plan discussed with: Patient, Daughter Date of Service: Feb 13, 2024 Billing Provider: TUAN FERNANDEZ MD Common Visit Codes: [id number] INP/OBS CARE(MOD) TUAN FERNANDEZ MD Feb 13, 2024 18:03
[2024-02-13] MEDS ORDERED: BISACODYL 10 MG RECT SUPP PR ONE (18:15)
[2024-02-13] MEDS: CYCLOBENZAPRINE HCL 10 MG TAB PO SCH (22:14)
[2024-02-14] VITALS (7 sets, daily range): BP systolic 106–141; BP diastolic 45–71; PULSE 80–117; RESP 17–18; TEMP 98–98.9; O2SAT 91–96
--- NOTE | 2024-02-14 11:18 | DVHDS2 ---
Discharge Summary Date of Admission Feb 08, 2024 at 11:10 Date of Discharge: Feb 14, 2024 Labs/Diagnostic Data: Laboratory Results Test 02/12/24 13:30 02/12/24 11:40 02/11/24 06:09 02/10/24 06:16 Urine RBC 1 /hpf (0 - 4) Urine WBC None seen /hpf (0 - 5) Urine Squamous Epithelial Cells None seen /hpf (<5) Urine Bacteria None seen /hpf (None Seen) White Blood Count 9.3 10^3/uL (4.4-10.8) Red Blood Count 3.01 10^6/uL (4.0-5.20) Hemoglobin 9.8 g/dL (12.2-16.2) Hematocrit 28.2 % (36.0-46.0) Mean Corpuscular Volume 93.9 fL (80.0-100.0) Mean Corpuscular Hemoglobin 32.7 pg (28.0-32.0) Mean Corpuscular Hemoglobin Concent 34.8 g/dL (32.0-36.0) Red Cell Distribution Width 14.5 % (11.8-14.3) Platelet Count 152 10^3/uL (140-450) Mean Platelet Volume 8.2 fL (6.9-10.8) Neutrophils (%) (Auto) 62.9 % (37.0-80.0) Lymphocytes (%) (Auto) 23.8 % (10.0-50.0) Monocytes (%) (Auto) 9.8 % (0.0-12.0) Eosinophils (%) (Auto) 3.3 % (0.0-7.0) Basophils (%) (Auto) 0.2 % (0.0-2.0) Neutrophils # (Auto) 5.8 10 ^3/uL (1.6-8.6) Lymphocytes # (Auto) 2.2 10 ^3/uL (0.4-5.4) Monocytes # (Auto) 0.9 10 ^3/uL (0-1.3) Eosinophils # (Auto) 0.3 10 ^3/uL (0-0.8) Basophils # (Auto) 0 10 ^3/uL (0-0.2) Nucleated Red Blood Cells 0.0 % Potassium Level 3.6 mmol/L (3.5-5.1) Sodium Level 141 mmol/L (136-145) Chloride Level 105 mmol/L (98-107) Carbon Dioxide Level 31 mmol/L (20-31) Anion Gap 5 (5-15) Blood Urea Nitrogen 11 mg/dL (9-23) Creatinine 0.46 mg/dL (0.550-1.02) Glomerular Filtration Rate Calc 103 mL/min (>90) BUN/Creatinine Ratio 23.9 (10.0-20.0) Serum Glucose 104 mg/dL (74-106) Calcium Level 9.2 mg/dL (8.7-10.4) Total Bilirubin 0.4 mg/dL (0.2-1.0) Aspartate Amino Transferase (AST) 40 U/L (13-40) Alanine Aminotransferase (ALT) 29 U/L (7-40) Alkaline Phosphatase 44 U/L (46-116) Total Protein 5.4 g/dL (5.7-8.2) Albumin 3.6 g/dL (3.2-4.8) Test 02/04/24 14:15 Prothrombin Time 11.0 sec (9.3-11.8) Prothrombin Time INR 1.04 (0.9-1.15) Activated Partial Thromboplast Time 28.2 SEC (24.5-34.5) Urine Color Light-yellow (Yellow) Urine Clarity Clear (Clear) Urine pH 5.5 (5.0-9.0) Urine Specific [place] 1.009 (1.001-1.035) Urine Protein Negative (Negative) Urine Ketones Negative (Negative) Urine Blood Negative /uL (Negative) Urine Nitrite Negative (Negative) Urine Bilirubin Negative (Negative) Urine Urobilinogen Normal mg/dL (Negative) Urine Leukocyte Esterase Negative /uL (Negative) Urine Glucose Normal mg/dL (Normal) Other Laboratory Tests 02/12/24 11:40 02/11/24 06:09 Brief Hx & Hospital Course: see dictated note Condition at Discharge: Fair Final Diagnosis/Problems List back surgery Discharge Disposition: [facility] Discharge Instruct/Medications Diet: Regular Activity: No Restrictions, As Tolerated Follow Up/Referral: fu with dr Simpson Medications: per apr Discharge Statement: "Patient was advised to return to the ER or call 911 if any headaches, dizziness, shortness of breath, chest pain, abdominal pain, bleeding, fevers, or worsening of medical condition. Patient was counseled about treatment plan, medications, possible side effects, patientverbalized understanding. All questions were answered to the best of my ability. This discharge took greater then 30 minutes in planning, reviewing documentation, counseling the patient, and discussing with other team members." ASSESSMENT ASSESSMENT Assessment back surgery Date of Service: Feb 14, 2024 Billing Provider: STANISLAV GRAY MD Common Visit Codes: [id number] DISCH DAY >30min STANISLAV GRAY MD Feb 14, 2024 11:18
--- NOTE | 2024-02-14 11:30 | DVHDS ---
DATE OF DISCHARGE: 02/14/2024 HISTORY OF PRESENT ILLNESS: The patient is a 68-year-old lady who was admitted after she underwent surgery on the lumbar spine for DJD of the spine. The patient has history of coronary artery disease, status post stents, hypertension, hyperlipidemia and GERD. HOSPITAL COURSE: The patient was seen in consult by Dr. Simpson. The patient's hemoglobin at the time of discharge was 9.8. The patient has been ambulating with physical therapy. The patient at this time, however, wishes to go to a rehabilitation. She will be discharged on medications as per medication reconciliation. She will follow up with Dr. Simpson and her primary care. FINAL DIAGNOSES: Therefore: * Coronary artery disease status post stents. * Hypertension. * Hyperlipidemia. * Obesity. * Gastroesophageal reflux disease. * Status post lumbar spine surgery for degenerative joint disease of the spine. Time spent in discharge planning and review of plan with the patient, nursing and paperwork was 38 minutes. MD YOAV Rene/DEMETRICE TID: [id number] RECEIPT: [id number]
--- NOTE | 2024-02-23 12:26 | ECG ---
[facility] Test Date: 2024-02-08 Test Time: 07:59:32 Pat Name: BENIGNO LOPEZ Department: Room: 0221 B Gender: F Hydraulic Repairer: MARY : 1955 Requested By: STANISLAV GRAY Order Number: [id number] Reading MD: Marimar Casas Measurements Intervals Baird Rate: 81 P: 55 AR: 148 QRS: -35 QRSD: 138 T: 39 QT: 464 QTc: 539 Interpretive Statements Normal sinus rhythm Left axis deviation Right bundle branch block Electronically Signed On 02-23-2024 18:00:30 PST by Marimar Casas Please click the below link to view image of tracing.
== END 2024-02-14 21:00 | DRG 448 ==
LOC: SUR 05:55 → TELE 11:10 → TELE-CENTR 14:20 → CENTRAL 02-10 18:50
PROVIDERS: ADMIT Orthopaedic Surgery; ATTEND Internal Medicine
PROC: 01NB0ZZ Release Lumbar Nerve, Open Approach (ICD-10-PCS; 2024-02-08)
PROC: 00NY0ZZ Release Lumbar Spinal Cord, Open Approach (ICD-10-PCS; 2024-02-08)
PROC: 4A11X4G Monitoring of Peripheral Nervous Electrical Activity, Intraoperative, External Approach (ICD-10-PCS; 2024-02-08)
PROC: 0SG1071 Fusion of 2 or more Lumbar Vertebral Joints with Autologous Tissue Substitute, Posterior Approach, Posterior Column, Open Approach (ICD-10-PCS; principal; 2024-02-08 07:33)
DX: M48.062 Spinal stenosis, lumbar region with neurogenic claudication (principal); G89.29 Other chronic pain; I25.10 Atherosclerotic heart disease of native coronary artery without angina pectoris; I10 Essential (primary) hypertension; E66.9 Obesity, unspecified; M47.9 Spondylosis, unspecified; M51.369 Other intervertebral disc degeneration, lumbar region without mention of lumbar back pain or lower extremity pain; E78.5 Hyperlipidemia, unspecified; K21.9 Gastro-esophageal reflux disease without esophagitis; K59.00 Constipation, unspecified; Z95.5 Presence of coronary angioplasty implant and graft; Z90.710 Acquired absence of both cervix and uterus; Z90.49 Acquired absence of other specified parts of digestive tract; Z79.82 Long term (current) use of aspirin; Z79.899 Other long term (current) drug therapy; Z88.2 Allergy status to sulfonamides; Z68.36 Body mass index [BMI] 36.0-36.9, adult
CPT/HCPCS: 36415; 71045; 72100; 76000; 80048; 80053; 81001; 81015; 84132; 85025; 85610; 85730; 86850; 86900; 86901; 87086; 97110; 97116; 97163; 97530; G0378; J2250; J2405; J2704; J7042